=== PATIENT | male | born 1985 ===

== ENCOUNTER 2017-05-25 10:41 | Emergency (ER) | payer MEDICAID ==
[2017-05-25 10:41] VITALS: BMI 27.7
[2017-05-25 10:47] VITALS: BP 117/71; PULSE 75; RESP 18; TEMP 97.9; O2SAT 96
--- NOTE | 2017-05-25 11:17 | C.PDOC ---
History Of Present Illness Pt c/o left trapezius area pain. Denies injury, but he "works out" a lot. Time Seen by Provider: 05/25/17 11:03 Chief Complaint (Nursing): Upper Extremity Problem/Injury History Per: Patient Onset/Duration Of Symptoms: Days (about 2 weeks) Current Symptoms Are (Timing): Better Quality: Aching Severity: Moderate Torso/Back (Pic): 1 - Pain Exacerbating Factor(s): Strenuous Use Of Affected Area Additional History Per: Prior Records Past Medical History Reviewed: Historical Data, Nursing Documentation, Vital Signs Vital Signs: Last Vital Signs Temp 97.9 F 05/25/17 10:46 Pulse 75 05/25/17 10:46 Resp 18 05/25/17 10:46 BP 117/71 05/25/17 10:46 Pulse Ox 96 05/25/17 10:46 - Medical History PMH: Bronchitis (acute) Surgical History: No Surg Hx - [facility] Procedures INJECT/INFUSE NEC (09/17/14) Family History: States: Unknown Family Hx, [place] (Father at 68) - Social History Hx Tobacco Use: No Hx Alcohol Use: No Hx Substance Use: No - Immunization History Hx Tetanus Toxoid Vaccination: Yes Hx Influenza Vaccination: Yes Hx Pneumococcal Vaccination: Yes Review Of Systems Except As Marked, All Systems Reviewed And Found Negative. Constitutional: Negative for: Fever, Weakness Cardiovascular: Negative for: Chest Pain, Palpitations Respiratory: Negative for: Shortness of Breath, Hemoptysis Gastrointestinal: Negative for: Vomiting, Abdominal Pain Musculoskeletal: Negative for: Neck Pain, Leg Pain Skin: Negative for: Rash Neurological: Negative for: Weakness, Numbness, Seizures, Altered Mental Status Physical Exam - Physical Exam Appears: Non-toxic, No Acute Distress Skin: Normal Color, Warm, Dry, No Rash Head: Atraumatic, Normacephalic Eye(s): bilateral: Normal Inspection, PERRL, EOMI Neck: Normal ROM, No Midline Cervical Tenderness, No Step Off Deformity, Supple Cardiovascular: Rhythm Regular Respiratory: Normal Breath Sounds, No Accessory Muscle Use Gastrointestinal/Abdominal: Soft, No Tenderness Back: No CVA Tenderness, No Vertebral Tenderness, Muscle Spasm (left trapezius area) Extremity: Normal ROM Extremity: Bilateral: Normal Color And Temperature Pulses: Left Radial: Normal Neurological/Psych: Oriented x3, Normal Motor, Normal Sensation ED Course And Treatment O2 Sat by Pulse Oximetry: 96 Pulse Ox Interpretation: Normal Disposition Counseled Patient/Family Regarding: Diagnosis, Need For Followup, Rx Given - Disposition Disposition: HOME/ ROUTINE Disposition Time: 11:18 Condition: STABLE Additional Instructions: Follow up with your primary doctor. Return to the ER if you develop worsening of symptoms or if you have any other concerns. Prescriptions: Ibuprofen [Motrin Tab] 800 mg PO TID PRN #30 tab PRN Reason: Pain, Moderate (4-7) Instructions: Muscle Spasm (ED) - Clinical Impression Clinical Impression: Trapezius muscle spasm
== END 2017-05-25 11:22 | disposition home or self-care (01) ==
LOC: C.ER 10:41
DX: M62.830 Muscle spasm of back (principal)

== ENCOUNTER 2018-06-02 22:23 | Emergency (ER) | payer SELFPAY ==
[2018-06-02 22:23] VITALS: BMI 27.7
[2018-06-02 22:30] VITALS: BP 119/76; PULSE 61; RESP 20; TEMP 98.1; O2SAT 98
[2018-06-02 22:57] LABS: URINE BILIRUBIN NEGATIVE (NEGATIVE); URINE BLOOD NEGATIVE (NEGATIVE); URINE CLARITY Clear (Clear); URINE COLOR Yellow (YELLOW); URINE GLUCOSE (UA) NORMAL (Normal); URINE LEUKOCYTE ESTERASE NEG Leu/uL (Negative); URINE PROTEIN NEGATIVE (NEGATIVE); URINE UROBILINOGEN NORMAL mg/dL (0.2-1.0)
--- NOTE | 2018-06-02 23:14 | C.PDOC ---
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 Patient states his girlfriend saw her NUTRITION REPRESENTATIVE, was diagnosed with ureaplasm, and treated with doxycycline. Patient is currently asymptomatic but requests the same treatment. Admits to unprotected intercourse. He has a Hx of STD years ago. Denies testicular pain, penile discharge, dysuria, abdominal pain, back pain, or fever. Time Seen by Provider: 06/02/18 22:34 Chief Complaint (Nursing): Medical Clearance History Per: Patient History/Exam Limitations: no limitations Recent travel outside of the [place]: No Past Medical History Reviewed: Historical Data, Nursing Documentation, Vital Signs Vital Signs: Last Vital Signs Temp 98.1 F 06/02/18 22:24 Pulse 61 06/02/18 22:24 Resp 20 06/02/18 22:24 BP 119/76 06/02/18 22:24 Pulse Ox 98 06/02/18 23:49 - Medical History PMH: Bronchitis (acute) Denies: Depression - [facility] Procedures INJECT/INFUSE NEC (09/17/14) Family History: States: [place] (Father at 68) - Social History Hx Tobacco Use: No Hx Alcohol Use: No Hx Substance Use: No - Immunization History Hx Tetanus Toxoid Vaccination: Yes Hx Influenza Vaccination: Yes Hx Pneumococcal Vaccination: Yes Review Of Systems Constitutional: Negative for: Fever, Chills Gastrointestinal: Negative for: Abdominal Pain Genitourinary: Negative for: Dysuria, Hematuria, Penile Discharge, Scrotal Pain , Rash, Penile Pain Physical Exam - Physical Exam Appears: Non-toxic, No Acute Distress Skin: Normal Color, Warm, Dry Head: Atraumatic, Normacephalic Eye(s): bilateral: Normal Inspection, EOMI Nose: Normal Oral Mucosa: Moist Neck: Normal ROM, Supple Chest: Symmetrical Respiratory: No Accessory Muscle Use Gastrointestinal/Abdominal: Soft, No Tenderness Back: No CVA Tenderness, No Vertebral Tenderness Extremity: Normal ROM Neurological/Psych: Oriented x3, Normal Speech Gait: Steady ED Course And Treatment O2 Sat by Pulse Oximetry: 98 (Room air) Pulse Ox Interpretation: Normal Progress Note: UA ordered, results were negative, cultures and GC/Chlamydia sent. Patient discharged home with Rx and advised to follow up with PMD in 1-2 days. Case discussed with Dr Shrestha, agreed upon plan and discharge. Disposition - Disposition Disposition: HOME/ ROUTINE Disposition Time: 23:11 Condition: STABLE Additional Instructions: Follow up with your PMD in 1-2 days. Return to ER if symptoms persist or worsen. Prescriptions: Doxycycline Hyclate [Doryx] 100 mg PO BID #14 cap Instructions: Urethritis (DC) Forms: [employer] (Greek) - Clinical Impression Clinical Impression: STD exposure - PA / MENTAL RETARDATION NURSE / Resident Statement MD/DO has reviewed & agrees with the documentation as recorded. - Scribe Statement The provider has reviewed the documentation as recorded by the [place]rib[facility] Burt All medical record entries made by the [place] were at my direction and personally dictated by me. I have reviewed the chart and agree that the record accurately reflects my personal performance of the history, physical exam, medical decision making, and the department course for this patient. I have also personally directed, reviewed, and agree with the discharge instructions and disposition.
== END 2018-06-02 23:20 | disposition home or self-care (01) ==
LOC: C.ER 22:23
DX: Z20.2 Contact with and (suspected) exposure to infections with a predominantly sexual mode of transmission (principal)